=== PATIENT | male | born 1945 | race African-American/Black ===

== ENCOUNTER 2016-11-17 16:03 | Inpatient (IN) | payer MEDICARE, MEDICAID ==
[~2016-11-17] VITALS: Ht 167.6 cm; Wt 64.9 kg
[2016-11-17] MEDS ORDERED: SODIUM CHLORIDE 0.9% 1,000 ML IV ONE (17:19)
[2016-11-17] MEDS ORDERED: PANTOPRAZOLE SODIUM 40 MG/VIAL IV STA (17:48)
[2016-11-17 18:19] LABS: HEMATOCRIT. 39.3 % (42.0-52.0); HEMOGLOBIN. 12.6 g/dL (14.0-18.0); MEAN CORPUSCULAR HEMOGLOBIN 22.3 pg (28.0-32.0); MEAN CORPUSCULAR VOLUME 69.9 fL (80.0-94.0); MEAN PLATELET VOLUME 10.1 fl (7.4-10.4); PLATELET 105 x1000/uL (130-400); RED BLOOD CELL COUNT 5.63 mill/uL (4.7-6.1); RED CELL DISTRIBUTION WIDTH 16.2 % (11.6-14.6)
[2016-11-17] MEDS ORDERED: BENA20TA3 PO (18:25)
[2016-11-17] MEDS ORDERED: LOVA20TA2 PO (18:25)
[2016-11-17] MEDS ORDERED: ASPI-1159 PO (18:25)
[2016-11-17] MEDS ORDERED: FINA5TAB11 PO (18:25)
[2016-11-17] MEDS ORDERED: METO-300 PO (18:25)
[2016-11-17] MEDS ORDERED: TAMS0.4C31 PO (18:25)
[2016-11-17] MEDS ORDERED: IRON (18:25)
[2016-11-17 18:28] LABS: INR 1.2; PROTHROMBIN TIME 12.6 sec
[2016-11-17 18:50] LABS: PLATELET ESTIMATE NORMAL
[2016-11-17 19:00] LABS: CARBON DIOXIDE 22 mEq/L (21-32); CHLORIDE 109 mEq/L (98-107)
[2016-11-17] MEDS ORDERED: POTASSIUM CHLORIDE 20MEQ TABLET SR PO ONE (19:15)
[2016-11-17 23:15] VITALS: BP 140/87
[2016-11-18] VITALS (14 sets, daily range): BP systolic 123–146; BP diastolic 75–98
[2016-11-18] MEDS ORDERED: OCD PO (01:23)
[2016-11-18] MEDS ORDERED: ONDANSETRON HCL 4MG/2ML VIAL IV PRN (01:30)
[2016-11-18] MEDS ORDERED: ACETAMINOPHEN 325MG TABLET PO PRN (01:30)
[2016-11-18] MEDS: DEXT 5%/0.45% NACL 1000ML 1,000 ML IV SCH ×2 (02:00→15:57)
[2016-11-18 06:59] LABS: CARBON DIOXIDE 23 mEq/L (21-32); CHLORIDE 109 mEq/L (98-107)
[2016-11-18 07:03] LABS: HEMATOCRIT. 43.3 % (42.0-52.0); HEMOGLOBIN. 13.7 g/dL (14.0-18.0); MEAN CORPUSCULAR HEMOGLOBIN 22.3 pg (28.0-32.0); MEAN CORPUSCULAR VOLUME 70.4 fL (80.0-94.0); MEAN PLATELET VOLUME 9.6 fl (7.4-10.4); PLATELET 108 x1000/uL (130-400); RED BLOOD CELL COUNT 6.14 mill/uL (4.7-6.1); RED CELL DISTRIBUTION WIDTH 16.3 % (11.6-14.6)
[2016-11-18] MEDS: PANTOPRAZOLE SODIUM 40 MG/VIAL IV SCH (09:11)
[2016-11-18] MEDS: BENAZEPRIL 20MG TABLET PO SCH (09:11)
[2016-11-18] MEDS: ASPIRIN 81MG EC TABLET PO SCH (09:11)
[2016-11-18] MEDS: FINASTERIDE 5MG TABLET PO SCH (09:11)
[2016-11-18 14:19] LABS: PLATELET ESTIMATE SLIGHTLY DECREASED
[2016-11-18] MEDS: CALCIUM CARBONATE/VITAMIN D3 500MG TABLET PO SCH (20:22)
[2016-11-18] MEDS: ATORVASTATIN CALCIUM 20MG TABLET PO SCH (20:22)
[2016-11-18] MEDS: TAMSULOSIN HCL 0.4MG SR CAPSULE PO SCH (20:23)
[2016-11-18] MEDS: METOPROLOL TARTRATE 100MG TABLET PO SCH (23:12)
[2016-11-19] VITALS (17 sets, daily range): BP systolic 81–136; BP diastolic 48–96
[2016-11-19] MEDS: DEXT 5%/0.45% NACL 1000ML 1,000 ML IV SCH ×2 (05:00→20:29)
[2016-11-19] MEDS ORDERED: SODIUM CHLORIDE 0.9% 500 ML IV SCH ×2 (07:00→08:30)
[2016-11-19] MEDS: METOPROLOL TARTRATE 100MG TABLET PO SCH ×2 (08:06→20:39)
[2016-11-19] MEDS: TAMSULOSIN HCL 0.4MG SR CAPSULE PO SCH ×2 (08:06→16:17)
[2016-11-19] MEDS: BENAZEPRIL 20MG TABLET PO SCH (08:07)
[2016-11-19] MEDS ORDERED: PANTOPRAZOLE SODIUM 40 MG/VIAL IV SCH (09:00)
[2016-11-19] MEDS ORDERED: METOPROLOL TARTRATE 100MG TABLET PO SCH (09:00)
[2016-11-19 09:26] LABS: HEMATOCRIT 37.5 % (42.0-52.0); MEAN CORPUSCULAR HEMOGLOBIN 22.1 pg (28.0-32.0); MEAN CORPUSCULAR VOLUME 69.2 fL (80.0-94.0); PLATELET 112 x1000/uL (130-400); RED BLOOD CELL COUNT 5.42 mill/uL (4.7-6.1); RED CELL DISTRIBUTION WIDTH 16.4 % (11.6-14.6)
[2016-11-19 09:29] LABS: CHLORIDE 105 mEq/L (98-107)
[2016-11-19] MEDS: CALCIUM CARBONATE/VITAMIN D3 500MG TABLET PO SCH ×2 (09:33→16:17)
[2016-11-19] MEDS: FINASTERIDE 5MG TABLET PO SCH (09:33)
[2016-11-19] MEDS: PANTOPRAZOLE SODIUM 40 MG/VIAL IV SCH (09:33)
[2016-11-19] MEDS: ASPIRIN 81MG EC TABLET PO SCH (09:33)
[2016-11-19 09:36] LABS: CARBON DIOXIDE 19 mEq/L (21-32)
[2016-11-19] MEDS ORDERED: POTASSIUM CHLORIDE INJ 40 MEQ in DEXT 5% WATER 250 ML IV NR (12:30)
[2016-11-19 15:16] LABS: TOTAL IRON BINDING CAPACITY 243 ug/dL (250-450)
[2016-11-19] MEDS ORDERED: FUROSEMIDE 20MG/2ML VIAL IVP SCH (15:45)
[2016-11-19] MEDS: ATORVASTATIN CALCIUM 20MG TABLET PO SCH (20:28)
[2016-11-20] VITALS (12 sets, daily range): BP systolic 106–146; BP diastolic 54–111
[2016-11-20] MEDS: DEXT 5%/0.45% NACL 1000ML 1,000 ML IV SCH ×4 (06:16→20:28)
[2016-11-20] MEDS: CALCIUM CARBONATE/VITAMIN D3 500MG TABLET PO SCH ×2 (08:48→16:36)
[2016-11-20] MEDS: ASPIRIN 81MG EC TABLET PO SCH (08:48)
[2016-11-20] MEDS: PANTOPRAZOLE SODIUM 40 MG/VIAL IV SCH (08:48)
[2016-11-20] MEDS: BENAZEPRIL 20MG TABLET PO SCH (08:49)
[2016-11-20] MEDS: TAMSULOSIN HCL 0.4MG SR CAPSULE PO SCH ×2 (08:49→16:36)
[2016-11-20] MEDS: FINASTERIDE 5MG TABLET PO SCH (08:49)
[2016-11-20] MEDS: METOPROLOL TARTRATE 100MG TABLET PO SCH ×2 (08:50→20:29)
[2016-11-20 09:00] LABS: HEMATOCRIT. 36.8 % (42.0-52.0); HEMOGLOBIN. 11.8 g/dL (14.0-18.0); MEAN CORPUSCULAR HEMOGLOBIN 22.3 pg (28.0-32.0); MEAN CORPUSCULAR VOLUME 69.1 fL (80.0-94.0); MEAN PLATELET VOLUME 10.2 fl (7.4-10.4); PLATELET 101 x1000/uL (130-400); RED BLOOD CELL COUNT 5.32 mill/uL (4.7-6.1); RED CELL DISTRIBUTION WIDTH 16.5 % (11.6-14.6)
[2016-11-20 09:12] LABS: CARBON DIOXIDE 21 mEq/L (21-32); CHLORIDE 108 mEq/L (98-107)
[2016-11-20] MEDS ORDERED: POTASSIUM CHLORIDE 20MEQ TABLET SR PO SCH (09:30)
[2016-11-20] MEDS ORDERED: MAGNESIUM 1 G PREMIX 100 ML IV SCH (10:00)
[2016-11-20 14:29] LABS: PLATELET ESTIMATE SLIGHTLY DECREASED
[2016-11-20] MEDS: FERROUS SULFATE 325MG TABLET PO SCH (18:50)
[2016-11-20] MEDS: ATORVASTATIN CALCIUM 20MG TABLET PO SCH (20:28)
[2016-11-20] MEDS: ASCORBIC ACID 500 MG TABLET PO SCH (20:29)
[2016-11-21] VITALS (11 sets, daily range): BP systolic 123–155; BP diastolic 68–98
[2016-11-21 06:28] LABS: HEMATOCRIT. 36.2 % (42.0-52.0); HEMOGLOBIN. 11.9 g/dL (14.0-18.0); MEAN CORPUSCULAR HEMOGLOBIN 22.4 pg (28.0-32.0); MEAN CORPUSCULAR VOLUME 68.4 fL (80.0-94.0); MEAN PLATELET VOLUME 9.8 fl (7.4-10.4); PLATELET 116 x1000/uL (130-400); RED BLOOD CELL COUNT 5.29 mill/uL (4.7-6.1); RED CELL DISTRIBUTION WIDTH 16.3 % (11.6-14.6)
[2016-11-21] MEDS ORDERED: PANTOPRAZOLE 40MG DR TABLET PO SCH (06:50)
[2016-11-21 07:04] LABS: CARBON DIOXIDE 19 mEq/L (21-32); CHLORIDE 110 mEq/L (98-107)
[2016-11-21] MEDS: FERROUS SULFATE 325MG TABLET PO SCH ×3 (08:13→17:04)
[2016-11-21] MEDS: TAMSULOSIN HCL 0.4MG SR CAPSULE PO SCH ×2 (08:14→17:04)
[2016-11-21] MEDS: ASPIRIN 81MG EC TABLET PO SCH (08:14)
[2016-11-21] MEDS: BENAZEPRIL 20MG TABLET PO SCH (08:15)
[2016-11-21] MEDS: METOPROLOL TARTRATE 100MG TABLET PO SCH (08:15)
[2016-11-21] MEDS: ASCORBIC ACID 500 MG TABLET PO SCH (08:15)
[2016-11-21] MEDS: CALCIUM CARBONATE/VITAMIN D3 500MG TABLET PO SCH ×2 (08:15→17:04)
[2016-11-21] MEDS: FINASTERIDE 5MG TABLET PO SCH (08:18)
[2016-11-21] MEDS: DEXT 5%/0.45% NACL 1000ML 1,000 ML IV SCH (12:26)
[2016-11-21 14:19] LABS: PLATELET ESTIMATE SLIGHTLY DECREASED
[2016-11-21] MEDS ORDERED: MAGNESIUM OXIDE 400MG TABLET PO SCH (14:45)
[2016-11-21] MEDS ORDERED: POTASSIUM CHLORIDE 20MEQ TABLET SR PO SCH (14:45)
== END 2016-11-21 19:24 | disposition home health service (06) | DRG 253 ==
LOC: ER 16:04 → 3WST 20:34 → EDBEDREQ 20:37 → EDBEDREQTM 20:37 → ENRESERV 22:21 → 3WST 11-18 05:42
PROVIDERS: ADMIT Hospitalist; ATTEND Hospitalist
DX: K92.0 Hematemesis (principal); I95.9 Hypotension, unspecified; R65.10 Systemic inflammatory response syndrome (SIRS) of non-infectious origin without acute organ dysfunction; G81.90 Hemiplegia, unspecified affecting unspecified side; K74.60 Unspecified cirrhosis of liver; E44.1 Mild protein-calorie malnutrition; I10 Essential (primary) hypertension; D72.825 Bandemia; E83.51 Hypocalcemia; E83.42 Hypomagnesemia; E87.6 Hypokalemia; Z79.82 Long term (current) use of aspirin; Z86.73 Personal history of transient ischemic attack (TIA), and cerebral infarction without residual deficits; Z68.23 Body mass index [BMI] 23.0-23.9, adult; Z79.899 Other long term (current) drug therapy
CPT/HCPCS: 36415; 80048; 80053; 80076; 82270; 83540; 83550; 83690; 83735; 85025; 85027; 85610; 86850; 86870; 86900; 86920; 96361; 96374; 99285; C9113; J1940; J2405; J3475; J3480; J3490; J7030; J7040; J7060; A4315